=== PATIENT | male | born 1985 ===

== ENCOUNTER 2019-08-12 17:57 | Emergency (ER) | payer BC ==
--- NOTE | 2019-08-12 18:28 | EDM.PDOC ---
ED HPI GENERAL MEDICAL PROBLEM - General Chief Complaint: Syncope Stated Complaint: EMS ARRIVAL - SEIZURE/CARDIAC Time Seen by Provider: 08/12/19 18:25 Source of Information: Reports: Patient History Limitations: Reports: No Limitations - History of Present Illness INITIAL COMMENTS - FREE TEXT/NARRATIVE: Patient 33 male no significant past medical history presenting with chief complaint of syncopal episode. Patient states he was preparing dinner when he suddenly felt warm and lightheaded. Patient passed out. Patient woke up on the ground. Patient did not have any tongue biting or urinary incontinence. Patient denies any pain at this time. Patient states he feels well and has no problems. Patient states he has never passed out before. Patient's was home and sounds like he demonstrated some myoclonic jerks but no seizure-like activity. Patient was not postictal on EMS arrival. EMS gave him IV fluids and aspirin. On the 12-lead performed by EMS, there was some concerns for ST depressions with possible ST elevation in 1 precordial lead. Patient denies any preceding chest pain to these symptoms. Patient has history of recent travel, history of DVT or PE. Pmhx: None Pshx: None Family Hx: No family history of premature cardiac or unexplained . No family history of cardiac disease. Smoking history? no Etoh use? none Drug use? none Supplements: Patient states he takes a variety of natural supplements In addition to that documented in the HPI above, the additional ROS was obtained : Constitutional: Denies fevers or chills Eyes: Denies vision changes ENMT: Denies sore throat CV: Denies chest pain Resp: Denies SOB GI: Denies vomiting or diarrhea : Denies painful urination MSK: Per HPI Skin: Denies new rashes Neuro: Denies new numbness or tingling or weakness Endocrine: Denies unexpected weight loss Heme: Denies bleeding disorders I have reviewed the triage vital signs Const: Well nourished, well developed, appears stated age Eyes: PERRL, no conjunctival injection HENT: NCAT, Neck supple without meningismus CV: RRR, Warm, well-perfused extremities RESP: CTAB, Unlabored respiratory effort GI: soft, non-tender, non-distended, no masses MSK: No gross deformities appreciated Skin: Warm, dry. 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 Sensation and motor function of extremities grossly intact. Psych: Appropriate mood and affect Assessment and plan: Patient is a 33-year-old male status post syncopal episode. Patient's ER course was unremarkable. Initially, EMS was concerned about possible STEMI criteria based on their prehospital EKG. I reviewed prehospital EKG which demonstrated some ST elevation in 1 precordial lead but no other STEMI criteria. The morphology of that ST elevation appeared to be benign early repolarization. Serial EKGs performed in the emergency department did not demonstrate any signs of arrhythmia. There was evidence of left bundle branch block criteria. However, and the patient without chest pain or concerns for acute coronary syndrome, this is not an indication for emergent transfer or admission. Labs were performed in the ER does not demonstrate any significant electrolyte abnormalities other than mild hypokalemia at 3.3. Troponin was negative. Patient's vital signs improved without any intervention. Based on patient's history, I have very low suspicion that this is new onset seizure. However, I did educate patient on first-time seizure and that appropriate follow-up is still needed. This seems to be more likely vasovagal versus orthostatic syncope as the patient returned to baseline quickly had preceding feeling of warmth and lightheadedness. No CT scan indicated for the brain as patient had minor trauma, GCS of 15 on ER arrival and no neurologic abnormalities on physical exam. Patient educated on outpatient follow-up and all questions were addressed and answered. Patient agrees with plan. - Related Data Allergies Allergy/AdvReac Type Severity Reaction Status Date / Time No Known Allergies Allergy Verified 08/12/19 18:09 Home Meds: Home Meds . [No Known Home Meds] 08/12/19 [History] Past Medical History HEENT History: Reports: None Cardiovascular History: Reports: None Respiratory History: Reports: None Gastrointestinal History: Reports: None Genitourinary History: Reports: None Musculoskeletal History: Reports: None Neurological History: Reports: None Psychiatric History: Reports: None Endocrine/Metabolic History: Reports: None Hematologic History: Reports: None Immunologic History: Reports: None Oncologic (Cancer) History: Reports: None Dermatologic History: Reports: None - Infectious Disease History Infectious Disease History: Reports: None - Past Surgical History Head Surgeries/Procedures: Reports: None HEENT Surgical History: Reports: None Cardiovascular Surgical History: Reports: None Respiratory Surgical History: Reports: None GI Surgical History: Reports: None Male Surgical History: Reports: None Endocrine Surgical History: Reports: None Neurological Surgical History: Reports: None Musculoskeletal Surgical History: Reports: None Oncologic Surgical History: Reports: None Dermatological Surgical History: Reports: None Social & Family History - Family History Family Medical History: Noncontributory - Tobacco Use Smoking Status *Q: Never Smoker Second Hand Smoke Exposure: No - Caffeine Use Caffeine Use: Reports: Coffee - Recreational Drug Use Recreational Drug Use: No ED ROS GENERAL - Review of Systems Review Of Systems: See Below ED EXAM, GENERAL - Physical Exam Exam: See Below Course - Vital Signs Last Recorded V/S: Last Vital Signs Temp 36.7 C 08/12/19 18:07 Pulse 107 H 08/12/19 18:07 Resp 18 08/12/19 18:07 BP 178/106 H 08/12/19 18:07 Pulse Ox 96 08/12/19 18:07 - Orders/Labs/Meds Orders: Active Orders 24 hr Category Date Time Status EKG Documentation Completion [RC] STAT Care 08/12/19 18:11 Active Labs: Laboratory Tests 08/12/19 08/12/19 Range/Units 17:58 17:58 WBC 8.10 (4.0-11.0) K/uL RBC 4.88 (4.50-5.90) M/uL Hgb 14.6 (13.0-17.0) g/dL Hct 42.6 (38.0-50.0) % MCV 87.3 (80.0-98.0) fL MCH 29.9 (27.0-32.0) pg MCHC 34.3 (31.0-37.0) g/dL RDW Std Deviation 39.3 (28.0-62.0) fl RDW Coeff of Bridget 12 (11.0-15.0) % Plt Count 246 (150-400) K/uL MPV 9.40 (7.40-12.00) fL Neut % (Auto) 53.6 (48.0-80.0) % Lymph % (Auto) 38.6 (16.0-40.0) % Mcculloch % (Auto) 5.3 (0.0-15.0) % Eos % (Auto) 2.1 (0.0-7.0) % Baso % (Auto) 0.4 (0.0-1.5) % Neut # (Auto) 4.3 (1.4-5.7) K/uL Lymph # (Auto) 3.1 H (0.6-2.4) K/uL Mcculloch # (Auto) 0.4 (0.0-0.8) K/uL Eos # (Auto) 0.2 (0.0-0.7) K/uL Baso # (Auto) 0.0 (0.0-0.1) K/uL Nucleated RBC % 0.0 /100WBC Nucleated RBCs # 0 K/uL Sodium 139 (136-148) mmol/L Potassium 3.3 L (3.5-5.1) mmol/L Chloride 101 (98-107) mmol/L Carbon Dioxide 25.9 (21.0-32.0) mmol/L BUN 17 (7.0-18.0) mg/dL Creatinine 1.0 (0.8-1.3) mg/dL Est Cr Clr Drug Dosing 106.85 mL/min Estimated GFR (MDRD) > 60.0 ml/min Glucose 136 H (74-106) mg/dL Calcium 8.5 (8.5-10.1) mg/dL Total Bilirubin 0.5 (0.2-1.0) mg/dL AST 23 (15-37) IU/L ALT 28 (14-63) IU/L Alkaline Phosphatase 68 (46-116) U/L Troponin I < 0.050 (0.000-0.056) ng/mL Total Protein 7.2 (6.4-8.2) g/dL Albumin 4.1 (3.4-5.0) g/dL Globulin 3.1 (2.6-4.0) g/dL Albumin/Globulin Ratio 1.3 (0.9-1.6) Departure - Departure Time of Disposition: 19:11 Disposition: Home, Self-Care 01 Clinical Impression: Syncope Instructions: Syncope Referrals: PCP,None [Primary Care Provider] - Forms: ED Department Discharge Additional Instructions: The following information is given to patients seen in the emergency department who are being discharged to home. This information is to outline your options for follow-up care. We provide all patients seen in our emergency department with a follow-up referral. The need for follow-up, as well as the timing and circumstances, are variable depending upon the specifics of your emergency department visit. If you don't have a primary care physician on staff, we will provide you with a referral. We always advise you to contact your personal physician following an emergency department visit to inform them of the circumstance of the visit and for follow-up with them and/or the need for any referrals to a consulting specialist. The emergency department will also refer you to a specialist when appropriate. This referral assures that you have the opportunity for follow-up care with a specialist. All of these measure are taken in an effort to provide you with optimal care, which includes your follow-up. Under all circumstances we always encourage you to contact your private physician who remains a resource for coordinating your care. When calling for follow-up care, please make the office aware that this follow-up is from your recent emergency room visit. If for any reason you are refused follow-up, please contact the [facility] Emergency Department at and asked to speak to the emergency department charge nurse. Sepsis Event Note - Evaluation Sepsis Screening Result: No Definite Risk - Focused Exam Date Exam was Performed: 08/13/19 Time Exam was Performed: 07:57 - My Orders Last 24 Hours: My Active Orders 08/12/19 18:11 EKG Documentation Completion [RC] STAT - Assessment/Plan Last 24 Hours: My Active Orders 08/12/19 18:11 EKG Documentation Completion [RC] STAT
[2019-08-12 18:38] LABS: BLOOD UREA NITROGEN,BUN 17 mg/dL (7.0-18.0); CARBON DIOXIDE,CO2 25.9 mmol/L (21.0-32.0); CHLORIDE,CL 101 mmol/L (98-107); GLUCOSE RANDOM 136 mg/dL (74-106); POTASSIUM,K 3.3 mmol/L (3.5-5.1); SODIUM,NA 139 mmol/L (136-148)
== END 2019-08-12 19:28 | disposition home or self-care (01) ==
LOC: MW.ED 17:57
DX: R55 Syncope and collapse (principal)
CPT/HCPCS: 36415; 80053; 84484; 85025; 93005; 99284; 99284-25